=== PATIENT | female | born 1945 | race Caucasian/White ===

== ENCOUNTER 2016-12-04 06:48 | Inpatient (IN) | payer OTHER ==
[~2016-12-04] VITALS: Ht 172.7 cm; Wt 99.8 kg
[2016-12-04] VITALS (7 sets, daily range): BP systolic 101–155; BP diastolic 56–84
[~2016-12-04 06:48] MED LIST: DuoNeb 0.5-3(2.5)mg/3ml neb ONE; GABAPENTIN100 MG ORAL; LISINOPRIL10 MG ORAL; LOVASTATIN10 MG ORAL
--- NOTE | 2016-12-04 06:52 | Emergency Room Report ---
History of Present Illness General Chief Complaint: Dyspnea/Respdistress Source: Patient, EMS Present Illness HPI Patient is a 71-year-old female presented after increased difficulty breathing. Patient gradual onset of symptoms. Patient reported increased difficulty breathing over the past few hours. Patient had prior history of COPD. She ate normally uses supplemental oxygen. The patient stated that she had no change in the leg swelling. She denied any chest pain. She had a nonproductive cough. She had not been previous smoker Allergies: Coded Allergies: PENICILLINS (Verified Allergy, Unknown, 12/04/16) Patient History Past Medical History: see triage record, COPD Last Menstrual Period: n/a Reviewed Nursing Documentation: PMH: Agreed, PSxH: Agreed Nursing Documentation-PMH Hx Hypertension: Yes Hx COPD: Yes - emphysema Review of Systems All Other Systems: negative except mentioned in HPI Physical Exam Vital Signs Date Time Temp Pulse Resp B/P Pulse Ox O2 Delivery O2 Flow Rate FiO2 12/04/16 06:32 97.3 101 20 155/57 97 Nasal Cannula 2.0 Sp02 EP Interpretation: reviewed, normal General Appearance: normal inspection, well appearing, no apparent distress, alert, GCS 15, obese Head: atraumatic ENT: normal ENT inspection, hearing grossly normal, normal voice Neck: normal inspection, full range of motion, supple, no bony tend Respiratory: normal inspection, lungs clear, normal breath sounds, no respiratory distress, no retraction, no wheezing Cardiovascular #1: regular rate, rhythm, no edema Gastrointestinal: normal inspection, normal bowel sounds, non tender, soft, no guarding, no hernia Genitourinary: no CVA tenderness Musculoskeletal: normal inspection, back normal, normal range of motion Neurologic: normal inspection, alert, oriented x3, responsive, supply chain systems manager III-XII nml as tested, speech normal Psychiatric: normal inspection, judgement/insight normal, mood/affect normal Skin: normal inspection, normal color, no rash Medical Decision Making Diagnostic Impression: Primary Impression: COPD exacerbation ER Course Patient presented for shortness of breath. Differential included but was not limited to anemia, pneumonia, pneumothorax, myocardial infarction, pericardial effusion, congestive heart failure, acidosis. Because of complexity of patient' s case laboratory testing and imaging studies were ordered. EKG interpreted by me normal sinus rhythm with low-voltage with a rate of [address] or t changes. Patient was given IV steroids as well as breathing treatments.Dr. Dudley was contacted for inpatient management due to complexity of medical condition. Labs Test 12/04/16 06:50 12/04/16 08:00 White Blood Count 5.2 K/UL (4.8-10.8) Red Blood Count 4.43 M/UL (4.20-5.40) Hemoglobin 12.0 G/DL (12.0-16.0) Hematocrit 37.7 % (37.0-47.0) Mean Corpuscular Volume 85 FL (80-99) Mean Corpuscular Hemoglobin 27.1 PG (27.0-31.0) Mean Corpuscular Hemoglobin Concent 31.8 G/DL (32.0-36.0) Red Cell Distribution Width 13.9 % (11.6-14.8) Platelet Count 64 K/UL (150-450) Mean Platelet Volume 9.1 FL (6.5-10.1) Neutrophils (%) (Auto) % (45.0-75.0) Lymphocytes (%) (Auto) % (20.0-45.0) Monocytes (%) (Auto) % (1.0-10.0) Eosinophils (%) (Auto) % (0.0-3.0) Basophils (%) (Auto) % (0.0-2.0) Differential Total Cells Counted 100 Neutrophils % (Manual) 52 % (45-75) Lymphocytes % (Manual) 34 % (20-45) Monocytes % (Manual) 9 % (1-10) Eosinophils % (Manual) 3 % (0-3) Basophils % (Manual) 2 % (0-2) Band Neutrophils 0 % (0-8) Platelet Estimate Decreased Platelet Morphology Normal Red Blood Cell Morphology Normal Sodium Level 141 mEQ/L (135-145) Potassium Level 4.4 mEQ/L (3.4-4.9) Chloride Level 99 mEQ/L (98-107) Carbon Dioxide Level 29 mEQ/L (20-30) Anion Gap 13 (5-15) Blood Urea Nitrogen 12 mg/dL (7-23) Creatinine 0.8 mg/dL (0.5-0.9) Estimat Glomerular Filtration Rate mL/min (>60) Glucose Level 156 mg/dL (74-106) Calcium Level 9.0 mg/dL (8.6-10.2) Total Bilirubin 0.4 mg/dL (0.0-1.2) Aspartate Amino Transf (AST/SGOT) 19 U/L (5-40) Alanine Aminotransferase (ALT/SGPT) 16 U/L (3-33) Alkaline Phosphatase 75 U/L (35-104) Troponin I < 0.30 ng/mL (<=0.30) Pro-B-Type Natriuretic Peptide 24 pg/mL (0-125) Total Protein 6.7 g/dL (6.6-8.7) Albumin 3.6 g/dL (3.5-5.2) Globulin 3.1 g/dL Albumin/Globulin Ratio 1.1 (1.0-2.7) Urine Color Pale yellow Urine Appearance Clear Urine pH 6 (4.5-8.0) Urine Specific [place] 1.020 (1.005-1.035) Urine Protein Negative (NEGATIVE) Urine Glucose (UA) Negative (NEGATIVE) Urine Ketones Negative (NEGATIVE) Urine Occult Blood Negative (NEGATIVE) Urine Nitrite Negative (NEGATIVE) Urine Bilirubin Negative (NEGATIVE) Urine Urobilinogen Normal MG/DL (0.0-1.0) Urine Leukocyte Esterase Negative (NEGATIVE) Urine RBC 0-2 /HPF (0 - 2) Urine WBC 0-2 /HPF (0 - 2) Urine Squamous Epithelial Cells Few /LPF (NONE/OCC) Urine Bacteria Occasional /HPF (NONE) EKG Diagnostic Results Rate: normal Rhythm: NSR ST Segments: no acute changes Chest X-Ray Diagnostic Results EP Interpretation: Yes Findings: no consolidation, no effusion, no pneumothorax, no acute cardiopulmonary disease Number of Views: 1 Last Vital Signs Date Time Temp Pulse Resp B/P Pulse Ox O2 Delivery O2 Flow Rate FiO2 12/04/16 06:32 97.3 101 20 155/57 97 Nasal Cannula 2.0 Status: unchanged Disposition: ADMITTED INPATIENT Condition: Serious Aldo Fulton December 04, 2016 06:52
[2016-12-04] MEDS ORDERED: DuoNeb 0.5-3(2.5)mg/3ml neb HHN ONE (07:00)
[2016-12-04 07:17] LABS: MEAN CORPUSCULAR HEMOGLOBIN 27.1 PG (27.0-31.0); MEAN CORPUSCULAR HGB CONC 31.8 G/DL (32.0-36.0); MEAN CORPUSCULAR VOLUME 85 FL (80-99); MEAN PLATELET VOLUME 9.1 FL (6.5-10.1); PLATELET COUNT 64 K/UL (150-450); RED BLOOD COUNT 4.43 M/UL (4.20-5.40); RED CELL DISTRIBUTION WIDTH 13.9 % (11.6-14.8); WHITE BLOOD COUNT 5.2 K/UL (4.8-10.8)
[2016-12-04 07:20] LABS: ALANINE AMINOTRANSFERASE 16 U/L (3-33); ALBUMIN/GLOBULIN RATIO 1.1 (1.0-2.7); ANION GAP 13 (5-15); ASPARTATE AMINO TRANSFERASE 19 U/L (5-40); CARBON DIOXIDE 29 mEQ/L (20-30); CHLORIDE 99 mEQ/L (98-107); CREATININE 0.8 mg/dL (0.5-0.9); HEMOLYSIS 13; POTASSIUM 4.4 mEQ/L (3.4-4.9); SODIUM 141 mEQ/L (135-145); TOTAL PROTEIN 6.7 g/dL (6.6-8.7)
[2016-12-04 07:21] LABS: TROPONIN I < 0.30 ng/mL (<=0.30)
[2016-12-04 07:39] LABS: BASOPHILS % (MANUAL) 2 % (0-2); EOSINOPHILS % (MANUAL) 3 % (0-3); LYMPHOCYTES % (MANUAL) 34 % (20-45); NEUTROPHILS % (MANUAL) 52 % (45-75); TOTAL CELLS COUNTED 100
[2016-12-04 07:40] LABS: BAND NEUTROPHILS % (MANUAL) 0 % (0-8); PLATELET ESTIMATE DECREASED; PLATELET MORPHOLOGY NORMAL
[2016-12-04] MEDS ORDERED: Solu-MEDROL 125mg Inj IVP ONE (08:15)
[2016-12-04 08:25] LABS: APPEARANCE,URINE CLEAR; KETONES,URINE NEGATIVE (NEGATIVE); LEUKOCYTE ESTERASE ,URINE NEGATIVE (NEGATIVE); NITRITE,URINE NEGATIVE (NEGATIVE); PH,URINE 6 (4.5-8.0); PROTEIN,URINE NEGATIVE (NEGATIVE); RBC,URINE 0-2 /HPF (0 - 2); SQUAMOUS EPITHELIAL CELL,UR FEW /LPF (NONE/OCC); UROBILINOGEN,URINE NORMAL MG/DL (0.0-1.0); WBC,URINE 0-2 /HPF (0 - 2)
[2016-12-04 08:26] LABS: BACTERIA,URINE OCCASIONAL /HPF
[2016-12-04] MEDS ORDERED: Ascorbic Acid 500mg tab ORAL ONE ×2 (09:00)
--- NOTE | 2016-12-04 09:12 | Diagnostic Imaging Report ---
Indication: Chest Pain Comparison: None A single view chest radiograph was obtained. Findings: No definite infiltrate or pulmonary vascular congestion identified. The heart is enlarged. The aorta is mildly enlarged consistent with atherosclerotic vascular disease. The bones are osteopenic. Impression: No acute disease
[2016-12-04] MEDS ORDERED: Promethazine/Codeine 5ml UD ORAL PRN (12:00)
[2016-12-04] MEDS ORDERED: Ketorolac 30mg Inj IV PRN (12:00)
[2016-12-04] MEDS ORDERED: Nitroglycerin Subl 0.4mg tab (Bottle Of 25) SL PRN (12:00)
[2016-12-04] MEDS ORDERED: LORazepam Inj 2mg/ml 1ml IV PRN (12:00)
[2016-12-04] MEDS ORDERED: cefTRIAXone 1 GM in D5W 55 ML IVPB SCH (12:00)
[2016-12-04] MEDS ORDERED: Morphine Sulfate 2mg/ml Inj IVP PRN (12:00)
[2016-12-04] MEDS ORDERED: DuoNeb 0.5-3(2.5)mg/3ml neb HHN PRN (12:00)
[2016-12-04] MEDS: Solu-MEDROL 125mg Inj IV SCH ×3 (13:09→23:35)
[2016-12-04] MEDS: Theophylline ER 100mg ORAL SCH ×2 (13:09→20:43)
--- NOTE | 2016-12-04 14:44 | History and Physical ---
History of Present Illness General Date patient seen: December 04, 2016 Reason for Hospitalization: Dyspnea/Respdistress Present Illness HPI 71-year-old female with COPD, chronic hypoxemia on home o2 with early dementia presented to [facility] with CC of difficulty breathing and persistent cough for a few days. Patient reported increased difficulty breathing over the past few hours. She is admitted for acute exacerbation of her COPD and bronchitis. Allergies: Coded Allergies: PENICILLINS (Verified Allergy, Unknown, 12/04/16) Medication History Scheduled Gabapentin* (Gabapentin*), 100 MG ORAL THREE TIMES A DAY, (Reported) Lisinopril* (Lisinopril*), 10 MG ORAL DAILY, (Reported) Lovastatin (Lovastatin), 10 MG ORAL BEDTIME, (Reported) Patient History Healthcare decision maker Resuscitation status Advanced Directive on File Past Medical/Surgical History Past Medical/Surgical History: (1) Dementia (2) Morbid obesity (3) COPD (chronic obstructive pulmonary disease) Review of Systems All Other Systems: negative except mentioned in HPI Physical Exam General Appearance: WD/WN Lines, tubes and drains: peripheral HEENT: normocephalic, atraumatic Neck: non-tender, normal alignment Respiratory/Chest: chest wall non-tender, lungs clear Cardiovascular/Chest: normal peripheral pulses Abdomen: normal bowel sounds, non tender, soft Genitourinary/Rectal: normal genital exam, normal rectal exam Extremities: normal range of motion Skin Exam: normal pigmentation Neurologic: bath steward/stewardess II-XII grossly normal Last 24 Hour Vital Signs Date Time Temp Pulse Resp B/P Pulse Ox O2 Delivery O2 Flow Rate FiO2 12/04/16 12:55 98.1 91 20 120/56 96 Nasal Cannula 2.0 12/04/16 10:45 97.5 92 20 129/78 92 Nasal Cannula 2.0 12/04/16 10:18 97.3 92 22 113/68 100 Room Air 2.0 12/04/16 10:00 92 22 113/68 100 Nasal Cannula 2.0 12/04/16 08:00 85 20 101/59 91 Room Air 12/04/16 07:03 101 20 Nasal Cannula 2.0 12/04/16 07:03 97.3 103 20 155/57 97 Nasal Cannula 2.0 12/04/16 06:57 95 22 99 Nasal Cannula 2.0 12/04/16 06:47 99 21 99 Nasal Cannula 2.0 12/04/16 06:32 97.3 101 20 155/57 97 Nasal Cannula 2.0 Laboratory Tests Test 12/04/16 06:50 12/04/16 08:00 White Blood Count 5.2 K/UL (4.8-10.8) Red Blood Count 4.43 M/UL (4.20-5.40) Hemoglobin 12.0 G/DL (12.0-16.0) Hematocrit 37.7 % (37.0-47.0) Mean Corpuscular Volume 85 FL (80-99) Mean Corpuscular Hemoglobin 27.1 PG (27.0-31.0) Mean Corpuscular Hemoglobin Concent 31.8 G/DL (32.0-36.0) L Red Cell Distribution Width 13.9 % (11.6-14.8) Platelet Count 64 K/UL (150-450) L Mean Platelet Volume 9.1 FL (6.5-10.1) Neutrophils (%) (Auto) % (45.0-75.0) Lymphocytes (%) (Auto) % (20.0-45.0) Monocytes (%) (Auto) % (1.0-10.0) Eosinophils (%) (Auto) % (0.0-3.0) Basophils (%) (Auto) % (0.0-2.0) Differential Total Cells Counted 100 Neutrophils % (Manual) 52 % (45-75) Lymphocytes % (Manual) 34 % (20-45) Monocytes % (Manual) 9 % (1-10) Eosinophils % (Manual) 3 % (0-3) Basophils % (Manual) 2 % (0-2) Band Neutrophils 0 % (0-8) Platelet Estimate Decreased L Platelet Morphology Normal Red Blood Cell Morphology Normal Sodium Level 141 mEQ/L (135-145) Potassium Level 4.4 mEQ/L (3.4-4.9) Chloride Level 99 mEQ/L (98-107) Carbon Dioxide Level 29 mEQ/L (20-30) Anion Gap 13 (5-15) Blood Urea Nitrogen 12 mg/dL (7-23) Creatinine 0.8 mg/dL (0.5-0.9) Estimat Glomerular Filtration Rate mL/min (>60) Glucose Level 156 mg/dL (74-106) H Calcium Level 9.0 mg/dL (8.6-10.2) Total Bilirubin 0.4 mg/dL (0.0-1.2) Aspartate Amino Transf (AST/SGOT) 19 U/L (5-40) Alanine Aminotransferase (ALT/SGPT) 16 U/L (3-33) Alkaline Phosphatase 75 U/L (35-104) Troponin I < 0.30 ng/mL (<=0.30) Pro-B-Type Natriuretic Peptide 24 pg/mL (0-125) Total Protein 6.7 g/dL (6.6-8.7) Albumin 3.6 g/dL (3.5-5.2) Globulin 3.1 g/dL Albumin/Globulin Ratio 1.1 (1.0-2.7) Urine Color Pale yellow Urine Appearance Clear Urine pH 6 (4.5-8.0) Urine Specific [place] 1.020 (1.005-1.035) Urine Protein Negative (NEGATIVE) Urine Glucose (UA) Negative (NEGATIVE) Urine Ketones Negative (NEGATIVE) Urine Occult Blood Negative (NEGATIVE) Urine Nitrite Negative (NEGATIVE) Urine Bilirubin Negative (NEGATIVE) Urine Urobilinogen Normal MG/DL (0.0-1.0) Urine Leukocyte Esterase Negative (NEGATIVE) Urine RBC 0-2 /HPF (0 - 2) Urine WBC 0-2 /HPF (0 - 2) Urine Squamous Epithelial Cells Few /LPF (NONE/OCC) Urine Bacteria Occasional /HPF (NONE) Height (Feet): 5 Height (Inches): 8.00 Weight (Pounds): 220 Medications Current Medications Medications (Trade) Dose Ordered Sig/Endy Route PRN Reason Start Time Stop Time Status Last Admin Dose Admin Albuterol/ Ipratropium (DuoNeb 0.5-3(2.5)mg/3ml) 3 ml Q4H PRN HHN dyspnea 12/04/16 12:00 12/09/16 11:59 Dextrose STAT PRN IV Hypoglycemia 12/04/16 12:00 01/03/17 11:59 Levofloxacin (Levaquin) 100 ml @ 100 mls/hr Q24H IVPB 12/04/16 14:00 12/11/16 13:59 Lorazepam (Ativan 2mg/ml 1ml) 0.5 mg Q4H PRN IV For Anxiety 12/04/16 12:00 12/11/16 11:59 Methylprednisolone Sodium Succinate (Solu-MEDROL) 60 mg EVERY 6 HOURS IV 12/04/16 12:00 01/03/17 11:59 12/04/16 13:09 Morphine Sulfate (Morphine Sulfate) 2 mg Q4H PRN IVP severe pain 7-10 12/04/16 12:00 12/11/16 11:59 Nitroglycerin (Ntg) 0.4 mg Q5M X 3 DOSES PRN SL Prn Chest Pain 12/04/16 12:00 01/03/17 11:59 Ondansetron HCl (Zofran) 4 mg Q6H PRN IVP Nausea & Vomiting 12/04/16 12:00 01/03/17 11:59 Promethazine HCl/ Codeine (Phenergan with Codeine) 5 ml Q6H PRN ORAL cough 12/04/16 12:00 01/03/17 11:59 Temazepam (Restoril) 15 mg HSPRN PRN ORAL Insomnia 12/04/16 12:00 12/11/16 11:59 Theophylline (Navi-Dur) 100 mg EVERY 12 HOURS ORAL 12/04/16 13:00 01/03/17 12:59 12/04/16 13:09 Assessment/Plan Problem List: (1) COPD exacerbation ICD Codes: J44.1 - Chronic obstructive pulmonary disease with (acute) exacerbation SNOMED: 995944412, 407180097 (2) Morbid obesity ICD Codes: E66.01 - Morbid (severe) obesity due to excess calories SNOMED: 195318318, 24518236824812 (3) Dementia ICD Codes: F03.90 - Unspecified dementia without behavioral disturbance SNOMED: 64345978 Assessment/Plan respiratory treatment IV antibioitics steroids antitussives dvt prophylaxis JOSH ORANTES December 04, 2016 14:44
--- NOTE | 2016-12-04 15:45 | Cardiology Report ---
APPROVED REPORT EKG Measurement Heart [id number] Normal sinus rhythm Low voltage QRS Borderline ECG
[2016-12-04] MEDS ORDERED: Ipratropium 0.02% Inh Soln 2.5ml UD HHN PRN (16:30)
[2016-12-04] MEDS ORDERED: Heparin 5000 units/ml inj SUBQ SCH (21:00)
[2016-12-04] MEDS ORDERED: Donepezil 5mg Tab ORAL SCH (21:00)
[2016-12-05] VITALS: BP 102/58
[2016-12-05 04:00] VITALS: BP 112/70
[2016-12-05] MEDS: Solu-MEDROL 125mg Inj IV SCH ×2 (05:14→11:30)
[2016-12-05 08:00] VITALS: BP 132/77
[2016-12-05] MEDS: Theophylline ER 100mg ORAL SCH (08:18)
[2016-12-05] MEDS ORDERED: Lisinopril 20mg tab ORAL SCH (09:00)
[2016-12-05 12:00] VITALS: BP 127/85
--- NOTE | 2016-12-05 14:57 | Pulmonology Progress Note ---
Assessment/Plan Problems: (1) COPD exacerbation (2) Morbid obesity (3) Dementia Assessment/Plan respiratory treatment titrate fio2 continue abx \chest pt dc home with son arrange outpatient pulmonary Subjective ROS Limited/Unobtainable: No Constitutional: Reports: no symptoms Allergies: Coded Allergies: PENICILLINS (Verified Allergy, Unknown, 12/04/16) Objective Last 24 Hour Vital Signs Date Time Temp Pulse Resp B/P Pulse Ox O2 Delivery O2 Flow Rate FiO2 12/05/16 12:00 98.1 115 21 127/85 95 Nasal Cannula 2.0 12/05/16 11:34 119 12/05/16 08:19 132/77 12/05/16 08:17 96 Nasal Cannula 2.0 28 12/05/16 08:17 114 20 Nasal Cannula 2.0 28 12/05/16 08:17 Nasal Cannula 2.0 28 12/05/16 08:00 98.1 119 22 132/77 94 Nasal Cannula 2.0 12/05/16 07:36 122 12/05/16 04:00 99 12/05/16 04:00 98.5 115 18 112/70 97 Room Air 12/05/16 00:00 107 12/05/16 00:00 97.8 112 20 102/58 98 Room Air 12/04/16 20:00 122 12/04/16 20:00 98.4 116 19 118/72 98 Nasal Cannula 2.0 12/04/16 19:00 126 20 Nasal Cannula 2.0 28 12/04/16 19:00 Nasal Cannula 2.0 28 12/04/16 19:00 96 Nasal Cannula 2.0 28 12/04/16 16:19 95 Nasal Cannula 2.0 28 12/04/16 16:18 Nasal Cannula 2.0 28 12/04/16 16:13 98.4 121 20 138/84 95 Nasal Cannula 2.0 12/04/16 16:00 134 12/04/16 15:55 122 20 Nasal Cannula 2.0 28 Intake and Output 12/04/16 12/05/16 19:00 07:00 Intake Total 840 ml 300 ml Output Total 150 ml Balance 690 ml 300 ml Intake Oral 840 ml 300 ml Output Urine Total 150 ml # Voids 2 2 General Appearance: WD/WN HEENT: normocephalic Respiratory/Chest: chest wall non-tender, lungs clear Breasts: no masses Cardiovascular: normal peripheral pulses Abdomen: normal bowel sounds, soft, non tender Genitourinary: normal external genitalia Neurologic/Psychiatric: 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-XII 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 normal, no motor/sensory deficits Current Medications Medications (Trade) Dose Ordered Sig/Endy Route PRN Reason Start Time Stop Time Status Last Admin Dose Admin Atorvastatin Calcium (Lipitor) 10 mg QHS ORAL 12/04/16 21:00 01/03/17 20:59 12/04/16 20:44 Dextrose STAT PRN IV Hypoglycemia 12/04/16 12:00 01/03/17 11:59 Donepezil HCl (Aricept) 5 mg QHS ORAL 12/04/16 21:00 01/03/17 20:59 12/04/16 20:44 Gabapentin (Neurontin) 600 mg BID ORAL 12/04/16 21:00 01/03/17 20:59 12/05/16 08:18 Ipratropium [place] (Atrovent) 500 mcg Q4H PRN HHN Shortness of Breath 12/04/16 16:30 12/09/16 16:29 Levofloxacin (Levaquin) 100 ml @ 100 mls/hr Q24H IVPB 12/04/16 14:00 12/11/16 13:59 12/05/16 13:49 Lisinopril (Prinivil) 40 mg DAILY ORAL 12/05/16 09:00 01/04/17 08:59 12/05/16 08:19 Lorazepam (Ativan 2mg/ml 1ml) 0.5 mg Q4H PRN IV For Anxiety 12/04/16 12:00 12/11/16 11:59 Methylprednisolone Sodium Succinate (Solu-MEDROL) 60 mg EVERY 6 HOURS IV 12/04/16 12:00 01/03/17 11:59 12/05/16 11:30 Morphine Sulfate (Morphine Sulfate) 2 mg Q4H PRN IVP severe pain 7-10 12/04/16 12:00 12/11/16 11:59 Nitroglycerin (Ntg) 0.4 mg Q5M X 3 DOSES PRN SL Prn Chest Pain 12/04/16 12:00 01/03/17 11:59 Ondansetron HCl (Zofran) 4 mg Q6H PRN IVP Nausea & Vomiting 12/04/16 12:00 01/03/17 11:59 Promethazine HCl/ Codeine (Phenergan with Codeine) 5 ml Q6H PRN ORAL cough 12/04/16 12:00 01/03/17 11:59 Quetiapine Fumarate (SEROquel) 50 mg BEDTIME ORAL 12/04/16 21:00 01/03/17 20:59 12/04/16 20:44 Temazepam (Restoril) 15 mg HSPRN PRN ORAL Insomnia 12/04/16 12:00 12/11/16 11:59 Theophylline (Navi-Dur) 100 mg EVERY 12 HOURS ORAL 12/04/16 13:00 01/03/17 12:59 12/05/16 08:18 JOSH ORANTES December 05, 2016 14:57
[2016-12-05 16:00] VITALS: BP 140/78
--- NOTE | 2016-12-05 16:03 | Consultation ---
History of Present Illness General Chief Complaint: Dyspnea/Respdistress Present Illness HPI 71-year-old female with COPD, chronic hypoxemia on home o2 with early dementia presented to [facility] ER with CC of difficulty breathing and persistent cough for a few days. Target sxs depressed mood, anhedonia, decrease energy,. poor concentration and memory. the pt stated that she is hopeless and she feels lonely. most of the family members moved out of [place]. the pt c/o losing her stuff , and forgetting important things. the pt perseverated that most of her family and friends left the area. Allergies: Coded Allergies: PENICILLINS (Verified Allergy, Unknown, 12/04/16) Medication History Scheduled Gabapentin* (Gabapentin*), 100 MG ORAL THREE TIMES A DAY, (Reported) Lisinopril* (Lisinopril*), 10 MG ORAL DAILY, (Reported) Lovastatin (Lovastatin), 10 MG ORAL BEDTIME, (Reported) Patient History History Provided By: Patient, PMD Healthcare decision maker pt A&Ox4 Resuscitation status Full Code Advanced Directive on File Past Medical/Surgical History Past Medical/Surgical History: (1) COPD (chronic obstructive pulmonary disease) (2) Morbid obesity (3) Dementia (4) COPD exacerbation Review of Systems Constitutional: Reports: malaise, weakness Psychiatric: Reports: depressed feelings, emotional problems, prior hx Physical Exam General Appearance: alert, mild distress Neurologic: alert, oriented x 3, responsive, depressed affect Last 24 Hour Vital Signs Date Time Temp Pulse Resp B/P Pulse Ox O2 Delivery O2 Flow Rate FiO2 12/05/16 12:00 98.1 115 21 127/85 95 Nasal Cannula 2.0 12/05/16 11:34 119 12/05/16 08:19 132/77 12/05/16 08:17 96 Nasal Cannula 2.0 28 12/05/16 08:17 114 20 Nasal Cannula 2.0 28 12/05/16 08:17 Nasal Cannula 2.0 28 12/05/16 08:00 98.1 119 22 132/77 94 Nasal Cannula 2.0 12/05/16 07:36 122 12/05/16 04:00 99 12/05/16 04:00 98.5 115 18 112/70 97 Room Air 12/05/16 00:00 107 12/05/16 00:00 97.8 112 20 102/58 98 Room Air 12/04/16 20:00 122 12/04/16 20:00 98.4 116 19 118/72 98 Nasal Cannula 2.0 12/04/16 19:00 126 20 Nasal Cannula 2.0 28 12/04/16 19:00 Nasal Cannula 2.0 28 12/04/16 19:00 96 Nasal Cannula 2.0 28 12/04/16 16:19 95 Nasal Cannula 2.0 28 12/04/16 16:18 Nasal Cannula 2.0 28 12/04/16 16:13 98.4 121 20 138/84 95 Nasal Cannula 2.0 12/04/16 16:00 134 Intake and Output 12/04/16 12/05/16 19:00 07:00 Intake Total 840 ml 300 ml Output Total 150 ml Balance 690 ml 300 ml Intake Oral 840 ml 300 ml Output Urine Total 150 ml # Voids 2 2 Height (Feet): 5 Height (Inches): 8.00 Weight (Pounds): 220 Medications Current Medications Medications (Trade) Dose Ordered Sig/Endy Route PRN Reason Start Time Stop Time Status Last Admin Dose Admin Atorvastatin Calcium (Lipitor) 10 mg QHS ORAL 12/04/16 21:00 01/03/17 20:59 12/04/16 20:44 Dextrose STAT PRN IV Hypoglycemia 12/04/16 12:00 01/03/17 11:59 Donepezil HCl (Aricept) 5 mg QHS ORAL 12/04/16 21:00 01/03/17 20:59 12/04/16 20:44 Gabapentin (Neurontin) 600 mg BID ORAL 12/04/16 21:00 01/03/17 20:59 12/05/16 08:18 Ipratropium [place] (Atrovent) 500 mcg Q4H PRN HHN Shortness of Breath 12/04/16 16:30 12/09/16 16:29 Levofloxacin (Levaquin) 100 ml @ 100 mls/hr Q24H IVPB 12/04/16 14:00 12/11/16 13:59 12/05/16 13:49 Lisinopril (Prinivil) 40 mg DAILY ORAL 12/05/16 09:00 01/04/17 08:59 12/05/16 08:19 Lorazepam (Ativan 2mg/ml 1ml) 0.5 mg Q4H PRN IV For Anxiety 12/04/16 12:00 12/11/16 11:59 Methylprednisolone Sodium Succinate (Solu-MEDROL) 60 mg EVERY 6 HOURS IV 12/04/16 12:00 01/03/17 11:59 12/05/16 11:30 Morphine Sulfate (Morphine Sulfate) 2 mg Q4H PRN IVP severe pain 7-10 12/04/16 12:00 12/11/16 11:59 Nitroglycerin (Ntg) 0.4 mg Q5M X 3 DOSES PRN SL Prn Chest Pain 12/04/16 12:00 01/03/17 11:59 Ondansetron HCl (Zofran) 4 mg Q6H PRN IVP Nausea & Vomiting 12/04/16 12:00 01/03/17 11:59 Promethazine HCl/ Codeine (Phenergan with Codeine) 5 ml Q6H PRN ORAL cough 12/04/16 12:00 01/03/17 11:59 Quetiapine Fumarate (SEROquel) 50 mg BEDTIME ORAL 12/04/16 21:00 01/03/17 20:59 12/04/16 20:44 Temazepam (Restoril) 15 mg HSPRN PRN ORAL Insomnia 12/04/16 12:00 12/11/16 11:59 Assessment/Plan Status: not improved Assessment/Plan MDD, Cognitive impairment/ -lexapro 10 mg po Colin Hutchins M.D. December 05, 2016 16:03
--- NOTE | 2016-12-06 12:08 | Diagnostic Imaging Report ---
APPROVED REPORT CPT Code: 42255 Present Symptoms Shortness of breath BILATERAL: Imaging reveals a patent deep venous system bilaterally. There is no evidence of thrombus within the femoral, popliteal or tibial segments. The greater saphenous veins are also within normal limits. Doppler indicates normal spontaneous flow within these segments.
--- NOTE | 2016-12-06 14:34 | Discharge Summary ---
Discharge Summary Hospital Course Date of Admission December 04, 2016 at 09:18 Date of Discharge December 05, 2016 at 16:48 Admitting Diagnosis COPD EXACEBRATION HPI Jalyn Alejo is a 71 year old female who was admitted on December 04, 2016 at 09:18 for Chronic Obstructive Pulmonary Disease Exacerbation Hospital Course [id number] Discharge Discharge Disposition Patient was discharged to Home (01) Discharge Diagnoses: Edith Doan NP December 06, 2016 14:34
--- NOTE | 2016-12-07 05:29 | Discharge Summary 2 SIG ---
DATE OF ADMISSION: 12/04/2016 DATE OF DISCHARGE: 12/05/2016 FRONT LINE LEADER: Colin Shook M.D. BRIEF HOSPITAL COURSE: The patient is a 71-year-old female with COPD and chronic hypoxemia on home O2 and early dementia, presented to ED complaining of difficulty breathing and persistent cough for few days and had increased difficulty breathing. On evaluation at ED, the chest x-ray showed no acute cardiopulmonary disease. EKG was in normal sinus rhythm. The patient was admitted for acute exacerbation of COPD and acute bronchitis. She was given respiratory treatments and chest physiotherapy and was started on IV Solu-Medrol every six hours, theophylline, and levofloxacin. She was seen by Dr. Shook. Thus, the patient presented with anhedonia and decreased energy with poor concentration and memory. She was diagnosed to have major depressive disorder and was given Lexapro 10 mg daily. Due to rapid unexpected improvement in the patient's symptoms, the patient was discharged home with son to arrange outpatient pulmonary followup. FINAL DIAGNOSES: 1. Acute chronic obstructive pulmonary disease exacerbation. 2. Morbid obesity. 3. Dementia. 4. Major depressive disorder. Yoanna Dudley M.D. I have been assigned to dictate discharge summary on this account and I was not involved in the patient's management. Edith Doan N.P. DR: Rufino JOB#: [id number] CC:
== END 2016-12-05 16:48 | disposition home or self-care (01) | DRG 192 ==
LOC: EDBD 06:48 → EMR 08:30 → 2E 09:18 → EDBEDREQ 09:37
DX: J44.1 Chronic obstructive pulmonary disease with (acute) exacerbation (principal); Z99.81 Dependence on supplemental oxygen; F03.90 Unspecified dementia, unspecified severity, without behavioral disturbance, psychotic disturbance, mood disturbance, and anxiety; J20.9 Acute bronchitis, unspecified; J44.0 Chronic obstructive pulmonary disease with (acute) lower respiratory infection; R09.02 Hypoxemia; E66.01 Morbid (severe) obesity due to excess calories; F32.9 Major depressive disorder, single episode, unspecified; Z68.33 Body mass index [BMI] 33.0-33.9, adult
CPT/HCPCS: 36415; 71010; 80053; 81001; 83880; 84484; 85007; 85025; 93005; 93970; 94640; 94664; 94760; J7620